=== PATIENT | female | born 1945 | race African-American/Black ===

== ENCOUNTER 2016-07-08 11:36 | Emergency (ER) | payer OTHER ==
[~2016-07-08] VITALS: Ht 165.1 cm; Wt 88.2 kg
[2016-07-08 13:07] LABS: HEMATOCRIT 38.4 % (36.0-46.0); MCH 29.8 PG (29.0-34.0); MCHC 35.7 G/DL (30.0-36.0); MCV 83.7 FL (83-99); MEAN PLAT.VOLUME 8.8 uM^3 (9.5-12.4); PLATELET COUNT 319 K/uL (156-360); RBC DIS.WIDTH-CV 13.2 % (11.8-14.6); RBC DIS.WIDTH-SD 39.8 % (39-53); RED BLOOD COUNT 4.59 M/uL (3.80-5.20); WHITE BLOOD COUNT 5.2 K/uL (4.1-10.2)
[2016-07-08 13:18] LABS: CHLORIDE 106 mEq/L (99-109); POTASSIUM 3.2 mEq/L (3.7-5.4); SODIUM 139 mEq/L (136-147)
[2016-07-08 13:19] LABS: MAGNESIUM 2.3 mg/dL (1.3-2.7)
[2016-07-08 13:20] LABS: GLUCOSE 126 mg/dL (70-99)
[2016-07-08 13:22] LABS: ANION GAP 14 MEQ/L (2-14)
[2016-07-08 13:24] LABS: GFR ESTIMATE (CALCULATED) > 59 mL/min/
[2016-07-08 13:25] LABS: UREA NITROGEN (BUN) 20 mg/dL (9-23)
[2016-07-08 13:30] LABS: TROP-I INTERPRETATION NEGATIVE; TROPONIN-I < 0.01 ng/mL (0.0-0.30)
[2016-07-08 14:17] VITALS: BP 157/71
== END 2016-07-08 14:31 | disposition home or self-care (01) ==
LOC: EME → EDBD 11:36 → EME 14:31
PROVIDERS: Emergency Medicine
DX: E86.0 Dehydration (principal); I95.1 Orthostatic hypotension; I10 Essential (primary) hypertension; E78.5 Hyperlipidemia, unspecified
CPT/HCPCS: 71020; 80048; 83735; 84484; 85027; 93005; 99281; 99285; J7030